=== PATIENT | female | born 1980 | race Caucasian/White ===

== ENCOUNTER 2020-09-07 21:32 | Inpatient (IN) ==
[2020-09-07] MEDS ORDERED: PENICILLIN G POTASSIUM 6 MU in DEXTROSE 5% 250 ML IV STA (23:08)
[2020-09-07] MEDS ORDERED: OXYTOCIN 30 UNITS/500 ML BAG IV PRN ×2 (23:08)
--- NOTE | 2020-09-07 23:13 | Obstetrical Progress Note ---
Date of Service September 07, 2020 Subjective 40 yo @ 36 + weeks AROM- clear Bedside sono; VT FHR; CAT1 Minimal irreg ctx GBS culx done starting Pitocin augmentation Results & Data ([facility]) Vital Signs (Past 12 Hours) Vital Signs Temp Pulse Resp BP 09/07/20 22:12 36.9 C 96 H 18 124/68 09/07/20 21:50 96 H 124/68
[2020-09-07 23:31] LABS: Hematocrit (blood only) 33.6 % (37-47); Hemoglobin 11.6 g/dL (12.0-16.0); Mean Corpuscular Hemoglobin 29.7 pg (25-34); Mean Corpuscular Volume 85.9 fL (80-100); Mean Platelet Volume 9.3 fL (7.4-10.4); Platelet Count 413 K/uL (130-400); RDW Coefficient of Variation 13.8 % (11.5-14.5); RDW Standard Deviation 42.7 fL (36.4-46.3); Red Blood Count 3.91 M/uL (4.2-5.4); White Blood Count 13.25 K/uL (4.8-10.8)
[2020-09-07] MEDS: LACTATED RINGER'S 1,000 ML IV PRN (23:48)
[2020-09-07 23:53] LABS: Mean Corpuscular Hgb Conc 34.5 g/dL (32-36)
--- NOTE | 2020-09-08 01:10 | Anesthesiology Progress Note ---
Date of Service September 08, 2020 Anesthesia Post Procedure Vital Signs Vital Signs: Temp Pulse Resp BP 09/08/20 00:15 77 18 132/60 09/07/20 23:30 37.0 C 09/07/20 22:12 36.9 C 96 H 18 124/68 09/07/20 21:50 36.9 C 96 H 18 124/68 Transfer of Care Handoff Completed per policy Notes Mental Status: alert / awake / arousable Patient Amnestic to Procedure: Yes Nausea / Vomiting: adequately controlled Pain: adequately controlled Airway Patency, RR, SpO2: stable & adequate BP & HR: stable & adequate Hydration State: stable & adequate Anesthetic Complications: no major complications apparent
[2020-09-08] MEDS ORDERED: SODIUM CHLORIDE 0.9% INJ 10 ML VIAL ONE ×2 (01:38→15:57)
[2020-09-08] MEDS ORDERED: fentaNYL citrate 100 MCG/2 ML VIAL ONE ×3 (01:38→15:57)
[2020-09-08] MEDS ORDERED: BUPIVACAINE 0.25% 30 ML VIAL ONE ×2 (01:38→15:57)
[2020-09-08] MEDS ORDERED: ePHEDrine sulfate 50 MG/ML AMP ONE ×2 (01:38→15:57)
[2020-09-08] MEDS ORDERED: fentaNYL 2MCG/ML ROPIVACAINE 1.25MG/ML 100 ML BAG EPI ONE ×2 (01:39→15:58)
[2020-09-08] MEDS ORDERED: NALOXONE HCL 0.4 MG/1 ML VIAL/CARP IV PRN (01:56)
[2020-09-08] MEDS ORDERED: ePHEDrine sulfate 50 MG/ML AMP IV PRN (01:56)
[2020-09-08] MEDS ORDERED: NALOXONE HCL 1 MG in SODIUM CHLORIDE 0.9% 1000ML 1,000 ML IV PRN (01:56)
[2020-09-08] MEDS ORDERED: ONDANSETRON INJ 2 MG/ML 2 ML VIAL IV PRN (01:56)
[2020-09-08] MEDS ORDERED: diphenhydrAMINE 50 MG/ML VIAL IV PRN (01:56)
[2020-09-08] MEDS ORDERED: PROMETHAZINE HCL 6.25 MG in SODIUM CHLORIDE 0.9% 50 ML IV PRN (01:56)
--- NOTE | 2020-09-08 02:23 | Anesthesiology Consultation ---
Date of Service September 08, 2020 Assessment & Plan (1) Encounter for pre-operative examination: Chart Review Chart Review: Patient NOT seen in Pre Admission Testing and Acceptable Risk for Labor Epidural Consults Requested none ASA ASA2 Proposed Anesthesia Anesthesia Type: Labor Epidural Risk / Benefits Reviewed With: PT / POA / Parent / Guardian, Accepts Plan and Informed Consent Obtained History Height/Weight Height: 5 ft 7 in Weight: 108.862 kg Allergies Allergy/AdvReac Type Severity Reaction Status Date / Time latex Allergy Rash Verified 09/07/20 22:40 Medications Home Medications Medication Instructions Recorded Confirmed Last Taken vit no.[id number] 1 tab PO DAILY 09/07/20 09/07/20 09/07/20 19:00 [ Vitamin] sertraline [Zoloft] 25 mg PO DAILY 09/07/20 09/07/20 09/07/20 19:00 Active Medications Generic Name Dose Route Start Last Admin Trade Name Freq PRN Reason Stop Dose Admin Lactated Ringer's 1,000 mls @ 125 mls/hr 09/07/20 23:08 09/08/20 01:30 Lr IV 09/09/20 23:07 999 mls/hr .Q8H PRN Infusion L&D Protocol Protocol Oxytocin 30 units in 500 mls @ 6 mls/hr 09/07/20 23:08 09/08/20 01:30 Pitocin IV 09/09/20 23:07 0.36 units/hr .Q24H PRN 6 mls/hr Labor Induction/Augmentation Titration Protocol 0.36 UNITS/HR NPO Date Last Intake of Fluids: 09/08/20 Time Last Intake of Fluids: 01:30 Date Last Intake of Solids: 09/07/20 Time Last Intake of Solids: 18:30 Past Medical History Medical History Elbow fracture, right 2015 Varicose vein of leg ablation in 12/14/2019 Exercise / Class Metabolic Activity II 4-5 Yardwork/Stairs/Walk up hill Past Surgical History Surgical History H/O dilation and curettage post TAB 2014 [place] teeth extracted 1999 Past Anesthesia History No Hx of Anesthesia Complications and No Family Hx of Anesthesia Complications History of PONV No Hx of PONV and No Hx of Motion Sickness Social History Smoking Status: Current every day smoker tobacco type: cigarettes Smoking cigarettes per day: 5 Hx Alcohol Use: No Hx Substance Use: No substance use type: does not use Physical Exam Vital Signs Last Vital Signs Temp 36.9 C 09/08/20 01:30 Pulse 74 09/08/20 02:19 Resp 16 09/08/20 01:30 BP 107/57 L 09/08/20 02:19 Pulse Ox 94 09/08/20 02:19 ENMT Mouth: no dentition abnormality Thyromental Distance: > or= 3.5 Finger Breadths Mallampati Class: II Neck normal visual inspection Respiratory normal respiratory effort Auscultation: lungs clear to auscultation bilaterally Cardiovascular Rate/Rhythm: regular rate and regular rhythm Psychiatric Orientation: alert Testing Laboratory Results 09/07/20 23:20
[2020-09-08] MEDS: LACTATED RINGER'S 1,000 ML IV PRN ×2 (02:26→13:18)
[2020-09-08] MEDS: PENICILLIN G POTASSIUM 3 MU in DEXTROSE 5% 100 ML IV PRN ×4 (03:48→15:21)
--- NOTE | 2020-09-08 03:58 | Obstetrical Progress Note ---
Date of Service September 08, 2020 Assessment & Plan Admission and Anticipated Discharge Date Admission Date: September 07, 2020 Subjective Pt doing wel FHR; CAT1 ctx; 1-6min Pit; 10mu VE; 4/50/-3 scalp placed Results & Data ([facility]) Vital Signs (Past 12 Hours) Vital Signs Temp Pulse Resp BP Pulse Ox 09/08/20 03:54 65 94 09/08/20 03:49 94 H 93 09/08/20 03:44 64 92 09/08/20 03:39 77 93 09/08/20 03:35 61 112/58 L 09/08/20 03:34 64 92 09/08/20 03:29 73 93 09/08/20 03:25 36.8 C 16 09/08/20 03:24 71 94 09/08/20 03:21 64 119/61 09/08/20 03:19 69 93 09/08/20 03:14 75 94 09/08/20 03:09 66 94 09/08/20 03:04 70 118/64 96 09/08/20 02:59 71 94 09/08/20 02:55 16 09/08/20 02:54 68 94 09/08/20 02:49 73 18 120/69 95 09/08/20 02:44 83 16 99/55 L 93 09/08/20 02:39 72 16 90/55 L 94 09/08/20 02:34 71 95 09/08/20 02:33 73 18 101/58 L 09/08/20 02:29 70 95 09/08/20 02:28 75 16 109/58 L 09/08/20 02:25 16 09/08/20 02:24 73 94 09/08/20 02:21 70 18 106/59 L 09/08/20 02:19 74 107/57 L 94 09/08/20 02:17 71 18 102/56 L 09/08/20 02:14 76 95 09/08/20 02:09 75 96 09/08/20 02:04 81 97 09/08/20 01:59 69 93 09/08/20 01:35 65 111/58 L 09/08/20 01:30 36.9 C 16 09/08/20 00:15 77 18 132/60 09/07/20 23:30 37.0 C 09/07/20 22:12 36.9 C 96 H 18 124/68 09/07/20 21:50 36.9 C 96 H 18 124/68
[2020-09-08] MEDS: fentaNYL 2MCG/ML ROPIVACAINE 1.25MG/ML 100 ML BAG EPI PRN ×3 (08:59→15:30)
--- NOTE | 2020-09-08 09:23 | History & Physical Report ---
Date of Service September 08, 2020 Assessment & Plan (1) Premature rupture of membranes: 40-year-old -0-0-2 at 36 weeks and 3 days, with premature rupture of membranes. Vital signs stable afebrile heart rate reassuring GBS unknown, on penicillin In first stage of labor, minimal change in cervix with irregular contractions Plan to increase Pitocin and continues to monitor All questions were answered. Admission and Anticipated Discharge Date Admission Date: September 07, 2020 History of Present Illness Primary Care Provider: Destini Stewart MD Patient is a 40-year-old -0-0-2 at 36 weeks and 3 days, admitted by Dr. Daniel for spontaneous rupture of membranes at 8 PM last night. She was then started on Pitocin and AROM and this morning to place scalp electrodes. She feels well no complaints, no contractions. Fluid has been clear Her has been uncomplicated except 1) Depression: on Zoloft 2) smoking, 6 cig/ day 3) polyhydramnios, 4)advanced maternal age, low risk by panorama testing, 5) GBS unknown. Allergies Allergy/AdvReac Type Severity Reaction Status Date / Time latex Allergy Rash Verified 09/07/20 22:40 Home Medications Home Medications Medication Instructions Recorded Confirmed Type vit no.[id number] 1 tab PO DAILY 09/07/20 09/07/20 History [ Vitamin] sertraline [Zoloft] 25 mg PO DAILY 09/07/20 09/07/20 History Patient History Medical History Elbow fracture, right 2015 Varicose vein of leg ablation in 12/14/2019 Surgical History H/O dilation and curettage post TAB 2014 [place] teeth extracted 1999 Social History Smoking Status: Current every day smoker Cigarettes Per Day: 5; Hx Alcohol Use: No Hx Substance Use: No Preferred Language: Indonesian Communication Ability: Effective 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 No h/o STD's, no genital HSV Review of Systems All systems reviewed & are unremarkable except as noted in HPI & below Physical Exam Genitourinary: normal external appearance Manual OB Exam: + cervical dilation 5 cm, + cervical effacement 60% and + station -2 OB Exam Monitor Tracing: + scalp electrode used (CATEG I), + external uterine monitor used, + category I and + normal FHT variability Results & Data ([facility]) Vital Signs (Past 12 Hours) Vital Signs Temp Pulse Resp BP Pulse Ox 09/08/20 09:09 72 95 09/08/20 09:06 66 107/65 09/08/20 09:04 72 95 09/08/20 08:59 66 95 09/08/20 08:54 82 97 09/08/20 08:49 83 102/61 96 09/08/20 08:44 64 93 09/08/20 08:39 64 95 09/08/20 08:34 71 108/62 95 09/08/20 08:29 73 95 09/08/20 08:28 74 113/63 09/08/20 08:24 70 95 09/08/20 08:19 72 95 09/08/20 08:14 71 95 09/08/20 08:09 77 95 09/08/20 08:04 67 125/59 L 96 09/08/20 07:59 68 96 09/08/20 07:54 72 96 09/08/20 07:49 74 122/62 97 09/08/20 07:44 74 97 09/08/20 07:39 71 97 09/08/20 07:36 71 113/58 L 09/08/20 07:34 64 97 09/08/20 07:30 36.9 C 20 09/08/20 07:29 73 98 09/08/20 07:24 71 96 09/08/20 07:21 80 141/71 H 09/08/20 07:19 67 98 09/08/20 07:14 67 97 09/08/20 07:09 85 92 09/08/20 07:08 65 134/75 10/24/20 07:05 71 130/70 10/24/20 07:04 68 97 10/24/20 07:00 16 1024/20 06:59 68 96 1024/20 06:54 75 96 1024/20 06:49 70 120/70 95 10/24/20 06:44 66 96 10/24/20 06:39 68 94 1024/20 06:34 66 118/70 95 24/20 06:30 16 24/20 06:29 65 95 1024/20 06:24 70 95 10/24/20 06:19 67 120/72 95 10/24/20 06:14 71 94 1024/20 06:09 68 95 24/20 06:04 73 113/71 96 09/08/20 06:00 16 20 05:59 66 95 1024/20 05:54 67 96 24/20 05:50 63 124/66 24/20 05:49 62 96 20 05:44 68 96 24/20 05:39 67 95 1024/20 05:34 65 117/67 96 24/20 05:30 18 1024/20 05:29 70 95 1024/20 05:24 68 95 20 05:20 65 126/74 09/08/20 05:19 67 96 24/20 05:14 63 95 24/20 05:09 70 95 24/20 05:04 76 114/61 94 2420 05:00 36.8 C 16 20 04:59 80 96 24/20 04:54 64 94 1024/20 04:51 73 112/57 L 24/20 04:49 64 94 10/24/20 04:44 68 94 10/24/20 04:39 69 93 1024/20 04:34 68 130/76 94 1024/20 04:30 16 1024/20 04:29 70 96 10/24/20 04:24 73 96 24/20 04:19 76 127/78 96 10/24/20 04:14 70 96 1024/20 04:09 66 95 1024/20 04:06 71 116/68 1024/20 04:04 65 95 09/08/20 03:59 73 95 09/08/20 03:54 65 94 09/08/20 03:49 94 H 18 93 09/08/20 03:44 64 92 09/08/20 03:39 77 93 09/08/20 03:35 61 112/58 L 09/08/20 03:34 64 92 09/08/20 03:29 73 93 09/08/20 03:25 36.8 C 16 09/08/20 03:24 71 94 09/08/20 03:21 64 119/61 09/08/20 03:19 69 93 09/08/20 03:14 75 94 09/08/20 03:09 66 94 09/08/20 03:04 70 118/64 96 09/08/20 02:59 71 94 09/08/20 02:55 16 09/08/20 02:54 68 94 09/08/20 02:49 73 18 120/69 95 09/08/20 02:44 83 16 99/55 L 93 09/08/20 02:39 72 16 90/55 L 94 09/08/20 02:34 71 95 09/08/20 02:33 73 18 101/58 L 09/08/20 02:29 70 95 09/08/20 02:28 75 16 109/58 L 09/08/20 02:25 16 09/08/20 02:24 73 94 09/08/20 02:21 70 18 106/59 L 09/08/20 02:19 74 107/57 L 94 09/08/20 02:17 71 18 102/56 L 09/08/20 02:14 76 95 09/08/20 02:09 75 96 09/08/20 02:04 81 97 09/08/20 01:59 69 93 09/08/20 01:35 65 111/58 L 09/08/20 01:30 36.9 C 16 09/08/20 00:15 77 18 132/60 09/07/20 23:30 37.0 C 09/07/20 22:12 36.9 C 96 H 18 124/68 09/07/20 21:50 36.9 C 96 H 18 124/68 Laboratory Results Lab Results 09/07/20 09/07/20 Range/Units 23:10 23:20 WBC 13.25 H (4.8-10.8) K/uL RBC 3.91 L (4.2-5.4) M/uL Hgb 11.6 L (12.0-16.0) g/dL Hct 33.6 L (37-47) % MCV 85.9 (80-100) fL MCH 29.7 (25-34) pg MCHC 34.5 (32-36) g/dL RDW Std Deviation 42.7 (36.4-46.3) fL RDW Coeff of [place] 13.8 (11.5-14.5) % Plt Count 413 H (130-400) K/uL MPV 9.3 (7.4-10.4) fL SARS-CoV-2, RNA, NAAT NEGATIVE (NEGATIVE)
--- NOTE | 2020-09-08 14:17 | Obstetrical Progress Note ---
Date of Service September 08, 2020 Assessment & Plan Admission and Anticipated Discharge Date Admission Date: September 07, 2020 Subjective Patient started to feel ctxs VE; 6/ 70%/ -1, central FHR categ I [place] ctxs q 2-3 min, pitocin is at 20 miu/min Anesthesia is here to give her bolus Continue to monitor Results & Data ([facility]) Vital Signs (Past 12 Hours) Vital Signs Temp Pulse Resp BP Pulse Ox 09/08/20 14:15 36.7 C 16 09/08/20 14:14 67 96 09/08/20 14:09 69 96 09/08/20 14:05 75 120/74 09/08/20 14:04 69 96 09/08/20 13:59 72 96 09/08/20 13:54 67 94 09/08/20 13:50 67 119/65 09/08/20 13:49 67 95 09/08/20 13:44 69 94 09/08/20 13:39 62 94 09/08/20 13:34 61 118/70 95 09/08/20 13:29 61 95 09/08/20 13:24 60 94 09/08/20 13:19 65 117/69 95 09/08/20 13:14 70 95 09/08/20 13:09 69 95 09/08/20 13:06 65 125/83 09/08/20 13:04 67 95 09/08/20 12:59 63 94 09/08/20 12:54 69 94 09/08/20 12:50 66 119/57 L 09/08/20 12:49 70 94 09/08/20 12:44 62 95 09/08/20 12:39 68 95 09/08/20 12:35 80 20 131/57 L 09/08/20 12:34 81 94 09/08/20 12:29 76 96 09/08/20 12:24 72 95 09/08/20 12:20 72 20 106/57 L 09/08/20 12:19 82 94 09/08/20 12:14 72 95 09/08/20 12:09 67 94 09/08/20 12:06 65 125/64 09/08/20 12:04 77 95 09/08/20 11:59 86 94 09/08/20 11:54 69 93 09/08/20 11:50 68 20 111/58 L 09/08/20 11:49 63 95 09/08/20 11:44 89 94 09/08/20 11:39 82 92 09/08/20 11:35 85 111/60 09/08/20 11:34 82 93 09/08/20 11:29 73 95 09/08/20 11:24 70 94 09/08/20 11:20 73 18 118/59 L 09/08/20 11:19 67 94 09/08/20 11:14 68 93 09/08/20 11:09 73 94 09/08/20 11:04 70 115/68 94 09/08/20 11:00 36.6 C 20 09/08/20 10:59 71 94 09/08/20 10:54 74 94 09/08/20 10:49 77 118/68 95 09/08/20 10:44 76 94 09/08/20 10:39 70 93 09/08/20 10:35 64 117/64 09/08/20 10:34 66 94 09/08/20 10:29 68 94 09/08/20 10:24 62 96 09/08/20 10:19 65 20 123/79 96 09/08/20 10:14 71 96 09/08/20 10:09 75 100 09/08/20 10:08 82 87 L 09/08/20 10:05 67 124/76 09/08/20 10:04 66 95 09/08/20 09:59 73 95 09/08/20 09:54 72 93 09/08/20 09:49 70 18 104/76 96 09/08/20 09:44 64 96 09/08/20 09:39 74 95 09/08/20 09:36 71 104/68 09/08/20 09:34 74 95 09/08/20 09:29 71 97 09/08/20 09:27 72 85 L 09/08/20 09:24 62 95 09/08/20 09:20 71 20 123/70 09/08/20 09:19 69 95 09/08/20 09:18 93 H 86 L 09/08/20 09:15 36.6 C 20 09/08/20 09:14 68 95 09/08/20 09:09 72 95 09/08/20 09:06 66 107/65 10/24/20 09:04 72 95 10/24/20 08:59 66 95 1024/20 08:54 82 97 1024/20 08:49 83 20 102/61 96 1024/20 08:44 64 93 1024/20 08:39 64 95 1024/20 08:34 71 108/62 95 10/24/20 08:29 73 95 1024/20 08:28 74 20 113/63 1024/20 08:24 70 95 1024/20 08:19 72 95 1024/20 08:14 71 95 1024/20 08:09 77 95 1024/20 08:04 67 125/59 L 96 24/20 07:59 68 96 24/20 07:54 72 96 24/20 07:49 74 122/62 97 24/20 07:44 74 97 24/20 07:39 71 97 24/20 07:36 71 113/58 L 20 07:34 64 97 20 07:30 36.9 C 20 24/20 07:29 73 98 1024/20 07:24 71 96 1024/20 07:21 80 141/71 H 24/20 07:19 67 98 24/20 07:14 67 97 24/20 07:09 85 92 1024/20 07:08 65 134/75 1024/20 07:05 71 130/70 1024/20 07:04 68 97 1024/20 07:00 16 24/20 06:59 68 96 1024/20 06:54 75 96 10/24/20 06:49 70 120/70 95 10/24/20 06:44 66 96 10/24/20 06:39 68 94 10/24/20 06:34 66 118/70 95 10/24/20 06:30 16 1024/20 06:29 65 95 10/24/20 06:24 70 95 10/24/20 06:19 67 120/72 95 10/24/20 06:14 71 94 10/24/20 06:09 68 95 10/24/20 06:04 73 113/71 96 10/24/20 06:00 16 1024/20 05:59 66 95 10/24/20 05:54 67 96 09/08/20 05:50 63 124/66 09/08/20 05:49 62 96 09/08/20 05:44 68 96 09/08/20 05:39 67 95 09/08/20 05:34 65 117/67 96 09/08/20 05:30 18 09/08/20 05:29 70 95 09/08/20 05:24 68 95 09/08/20 05:20 65 126/74 09/08/20 05:19 67 96 09/08/20 05:14 63 95 09/08/20 05:09 70 95 09/08/20 05:04 76 114/61 94 09/08/20 05:00 36.8 C 16 09/08/20 04:59 80 96 09/08/20 04:54 64 94 09/08/20 04:51 73 112/57 L 09/08/20 04:49 64 94 09/08/20 04:44 68 94 09/08/20 04:39 69 93 09/08/20 04:34 68 130/76 94 09/08/20 04:30 16 09/08/20 04:29 70 96 09/08/20 04:24 73 96 09/08/20 04:19 76 127/78 96 09/08/20 04:14 70 96 09/08/20 04:09 66 95 09/08/20 04:06 71 116/68 09/08/20 04:04 65 95 09/08/20 03:59 73 95 09/08/20 03:54 65 94 09/08/20 03:49 94 H 18 93 09/08/20 03:44 64 92 09/08/20 03:39 77 93 09/08/20 03:35 61 112/58 L 09/08/20 03:34 64 92 09/08/20 03:29 73 93 09/08/20 03:25 36.8 C 16 09/08/20 03:24 71 94 09/08/20 03:21 64 119/61 20 03:19 69 93 09/08/20 03:14 75 94 09/08/20 03:09 66 94 09/08/20 03:04 70 118/64 96 09/08/20 02:59 71 94 09/08/20 02:55 16 09/08/20 02:54 68 94 09/08/20 02:49 73 18 120/69 95 09/08/20 02:44 83 16 99/55 L 93 09/08/20 02:39 72 16 90/55 L 94 09/08/20 02:34 71 95 09/08/20 02:33 73 18 101/58 L 09/08/20 02:29 70 95 09/08/20 02:28 75 16 109/58 L 09/08/20 02:25 16 09/08/20 02:24 73 94 09/08/20 02:21 70 18 106/59 L 09/08/20 02:19 74 107/57 L 94 09/08/20 02:17 71 18 102/56 L
--- NOTE | 2020-09-08 15:46 | Anesthesiology Progress Note ---
Date of Service September 08, 2020 Assessment & Plan Admission and Anticipated Discharge Date Admission Date: September 07, 2020 Subjective 0 p redosed with 100 mcg of fentanyl and 5 mL 2% lidocaine Physical Exam Vital Signs: Last Vital Signs Temp 36.7 C 09/08/20 14:15 Pulse 77 09/08/20 15:43 Resp 16 09/08/20 14:15 BP 116/67 09/08/20 15:37 Pulse Ox 77 L 09/08/20 15:43 Results & Data ([facility]) Medications Administered Lactated Ringer's (Lr) 1,000 mls @ 125 mls/hr IV .Q8H PRN; Protocol PRN Reason: L&D Protocol Stop: 09/09/20 23:07 Last Admin: 09/08/20 13:18 Dose: 125 mls/hr Documented by: [id number] Infusion: 09/08/20 10:27 Dose: 125 mls/hr Documented by: [id number] Infusion: 09/08/20 07:15 Dose: 125 mls/hr Documented by: [id number] Infusion: 09/08/20 07:00 Dose: 125 mls/hr Documented by: [id number] Admin: 09/08/20 02:26 Dose: 125 mls/hr Documented by: [id number] Infusion: 09/08/20 02:26 Dose: 999 mls/hr Documented by: [id number] Infusion: 09/08/20 01:30 Dose: 999 mls/hr Documented by: [id number] Infusion: 09/08/20 01:00 Dose: 125 mls/hr Documented by: [id number] Infusion: 09/07/20 23:51 Dose: 0 mls/hr Documented by: [id number] Admin: 09/07/20 23:48 Dose: 125 mls/hr Documented by: [id number] Penicillin G Potassium 3 mu/ (Dextrose) 106 mls @ 100 mls/hr IV Q4H PRN PRN Reason: Give until delivery Stop: 09/17/20 23:07 Last Admin: 09/08/20 15:21 Dose: 100 mls/hr Documented by: [id number] Infusion: 09/08/20 12:34 Dose: 100 mls/hr Documented by: [id number] Admin: 09/08/20 11:30 Dose: 100 mls/hr Documented by: [id number] Infusion: 09/08/20 08:29 Dose: 100 mls/hr Documented by: [id number] Admin: 09/08/20 07:25 Dose: 100 mls/hr Documented by: [id number] Infusion: 09/08/20 04:52 Dose: 100 mls/hr Documented by: [id number] Admin: 09/08/20 03:48 Dose: 100 mls/hr Documented by: [id number] Oxytocin (Pitocin) 30 units in 500 mls @ 20 mls/hr IV .Q24H PRN; Protocol PRN Reason: Labor Induction/Augmentation Stop: 09/09/20 23:07 Last Titration: 09/08/20 12:30 Dose: 1.2 units/hr, 20 mls/hr Documented by: [id number] Titration: 09/08/20 10:15 Dose: 1.08 units/hr, 18 mls/hr Documented by: [id number] Titration: 09/08/20 09:13 Dose: 0.96 units/hr, 16 mls/hr Documented by: [id number] Titration: 09/08/20 07:30 Dose: 0.84 units/hr, 14 mls/hr Documented by: [id number] Titration: 09/08/20 07:00 Dose: 0.72 units/hr, 12 mls/hr Documented by: [id number] Titration: 09/08/20 05:00 Dose: 0.72 units/hr, 12 mls/hr Documented by: [id number] Titration: 09/08/20 03:45 Dose: 0.6 units/hr, 10 mls/hr Documented by: [id number] Titration: 09/08/20 03:15 Dose: 0.48 units/hr, 8 mls/hr Documented by: [id number] Titration: 09/08/20 01:30 Dose: 0.36 units/hr, 6 mls/hr Documented by: [id number] Titration: 09/08/20 01:00 Dose: 0.24 units/hr, 4 mls/hr Documented by: [id number] Admin: 09/08/20 00:20 Dose: 0.12 units/hr, 2 mls/hr Documented by: [id number] Cosigned by: [id number] Ropivacaine (Fentanyl 2mcg/Ml Ropivacaine 1.25mg/Ml 100 Ml Bag) 100 ml EPI PRN PRN; Protocol PRN Reason: Pain R/T Labor Stop: 09/09/20 01:55 Last Admin: 09/08/20 13:51 Dose: 10 ml Documented by: [id number] Cosigned by: [id number] Admin: 09/08/20 08:59 Dose: 10 ml Documented by: [id number] Cosigned by: [id number]
--- NOTE | 2020-09-08 17:14 | Obstetrical Progress Note ---
Date of Service September 08, 2020 Assessment & Plan Admission and Anticipated Discharge Date Admission Date: September 07, 2020 Subjective Patient is reevaluated She is now comfortable Epidural was redone VE; 8-9/ 90%/0 to +1 with ctxs Ctxs irregular every 2-4 min, some are mild Protracted labor, will raise Pitocin Continue to monitor. Results & Data ([facility]) Vital Signs (Past 12 Hours) Vital Signs Temp Pulse Resp BP Pulse Ox 09/08/20 17:09 71 97 09/08/20 17:04 85 98 09/08/20 16:59 67 94 09/08/20 16:54 66 95 09/08/20 16:51 86 113/60 09/08/20 16:49 65 94 09/08/20 16:47 73 120/66 09/08/20 16:44 84 95 09/08/20 16:41 83 120/68 09/08/20 16:39 73 95 09/08/20 16:37 85 100/59 L 09/08/20 16:34 72 93 09/08/20 16:31 82 95/52 L 09/08/20 16:29 88 95 09/08/20 16:26 75 116/61 09/08/20 16:24 85 93 09/08/20 16:22 75 113/59 L 09/08/20 16:20 94 H 107/56 L 09/08/20 16:19 93 H 94 09/08/20 16:18 85 122/71 09/08/20 16:15 77 125/78 09/08/20 16:14 81 129/74 94 09/08/20 16:09 73 93 09/08/20 16:04 87 143/85 H 92 09/08/20 16:01 90 81 L 09/08/20 15:59 78 97 09/08/20 15:54 69 95 09/08/20 15:50 73 150/80 H 09/08/20 15:49 73 93 09/08/20 15:48 71 84 L 09/08/20 15:44 78 95 09/08/20 15:43 77 77 L 09/08/20 15:39 69 96 09/08/20 15:37 68 116/67 09/08/20 15:35 75 132/79 09/08/20 15:34 82 96 09/08/20 15:29 75 93 09/08/20 15:24 79 93 09/08/20 15:19 78 95 09/08/20 15:14 63 96 09/08/20 15:10 79 87 L 09/08/20 15:09 68 95 09/08/20 15:04 72 95 09/08/20 14:59 74 95 09/08/20 14:57 76 87 L 09/08/20 14:54 77 93 09/08/20 14:50 68 132/76 09/08/20 14:49 71 96 09/08/20 14:44 70 93 09/08/20 14:41 85 89 L 09/08/20 14:39 71 95 09/08/20 14:35 62 122/63 09/08/20 14:34 67 94 09/08/20 14:29 67 94 09/08/20 14:24 72 94 09/08/20 14:21 73 110/69 09/08/20 14:19 66 95 09/08/20 14:15 36.7 C 16 09/08/20 14:14 67 96 09/08/20 14:09 69 96 09/08/20 14:05 75 120/74 09/08/20 14:04 69 96 09/08/20 13:59 72 96 09/08/20 13:54 67 94 09/08/20 13:50 67 119/65 09/08/20 13:49 67 95 09/08/20 13:44 69 94 09/08/20 13:39 62 94 09/08/20 13:34 61 118/70 95 09/08/20 13:29 61 95 09/08/20 13:24 60 94 09/08/20 13:19 65 117/69 95 09/08/20 13:14 70 95 09/08/20 13:09 69 95 09/08/20 13:06 65 125/83 09/08/20 13:04 67 95 09/08/20 12:59 63 94 09/08/20 12:54 69 94 09/08/20 12:50 66 119/57 L 09/08/20 12:49 70 94 09/08/20 12:44 62 95 09/08/20 12:39 68 95 09/08/20 12:35 80 20 131/57 L 09/08/20 12:34 81 94 09/08/20 12:29 76 96 09/08/20 12:24 72 95 09/08/20 12:20 72 20 106/57 L 09/08/20 12:19 82 94 09/08/20 12:14 72 95 09/08/20 12:09 67 94 09/08/20 12:06 65 125/64 09/08/20 12:04 77 95 09/08/20 11:59 86 94 09/08/20 11:54 69 93 09/08/20 11:50 68 20 111/58 L 09/08/20 11:49 63 95 09/08/20 11:44 89 94 09/08/20 11:39 82 92 09/08/20 11:35 85 111/60 09/08/20 11:34 82 93 09/08/20 11:29 73 95 09/08/20 11:24 70 94 09/08/20 11:20 73 18 118/59 L 09/08/20 11:19 67 94 09/08/20 11:14 68 93 09/08/20 11:09 73 94 09/08/20 11:04 70 115/68 94 09/08/20 11:00 36.6 C 20 09/08/20 10:59 71 94 09/08/20 10:54 74 94 09/08/20 10:49 77 118/68 95 09/08/20 10:44 76 94 09/08/20 10:39 70 93 09/08/20 10:35 64 117/64 09/08/20 10:34 66 94 09/08/20 10:29 68 94 09/08/20 10:24 62 96 09/08/20 10:19 65 20 123/79 96 09/08/20 10:14 71 96 09/08/20 10:09 75 100 09/08/20 10:08 82 87 L 09/08/20 10:05 67 124/76 09/08/20 10:04 66 95 09/08/20 09:59 73 95 09/08/20 09:54 72 93 09/08/20 09:49 70 18 104/76 96 09/08/20 09:44 64 96 09/08/20 09:39 74 95 09/08/20 09:36 71 104/68 10/24/20 09:34 74 95 09/08/20 09:29 71 97 09/08/20 09:27 72 85 L 09/08/20 09:24 62 95 09/08/20 09:20 71 20 123/70 20 09:19 69 95 20 09:18 93 H 86 L 09/08/20 09:15 36.6 C 20 09/08/20 09:14 68 95 09/08/20 09:09 72 95 09/08/20 09:06 66 107/65 09/08/20 09:04 72 95 09/08/20 08:59 66 95 09/08/20 08:54 82 97 09/08/20 08:49 83 20 102/61 96 09/08/20 08:44 64 93 09/08/20 08:39 64 95 09/08/20 08:34 71 108/62 95 09/08/20 08:29 73 95 09/08/20 08:28 74 20 113/63 09/08/20 08:24 70 95 09/08/20 08:19 72 95 09/08/20 08:14 71 95 09/08/20 08:09 77 95 09/08/20 08:04 67 125/59 L 96 09/08/20 07:59 68 96 09/08/20 07:54 72 96 09/08/20 07:49 74 122/62 97 09/08/20 07:44 74 97 09/08/20 07:39 71 97 09/08/20 07:36 71 113/58 L 09/08/20 07:34 64 97 09/08/20 07:30 36.9 C 20 09/08/20 07:29 73 98 09/08/20 07:24 71 96 09/08/20 07:21 80 141/71 H 09/08/20 07:19 67 98 09/08/20 07:14 67 97 09/08/20 07:09 85 92 09/08/20 07:08 65 134/75 09/08/20 07:05 71 130/70 20 07:04 68 97 09/08/20 07:00 16 09/08/20 06:59 68 96 09/08/20 06:54 75 96 20 06:49 70 120/70 95 10/24/20 06:44 66 96 10/24/20 06:39 68 94 10/24/20 06:34 66 118/70 95 10/24/20 06:30 16 10/24/20 06:29 65 95 10/24/20 06:24 70 95 10/24/20 06:19 67 120/72 95 10/24/20 06:14 71 94 10/24/20 06:09 68 95 10/24/20 06:04 73 113/71 96 10/24/20 06:00 16 10/24/20 05:59 66 95 10/24/20 05:54 67 96 10/24/20 05:50 63 124/66 10/24/20 05:49 62 96 10/24/20 05:44 68 96 10/24/20 05:39 67 95 10/24/20 05:34 65 117/67 96 10/24/20 05:30 18 10/24/20 05:29 70 95 10/24/20 05:24 68 95 10/24/20 05:20 65 126/74 10/24/20 05:19 67 96 10/24/20 05:14 63 95
[2020-09-08] MEDS ORDERED: NURSING L&D Epidural Breakthrough Pain Update ONE (17:27)
[2020-09-08] MEDS ORDERED: METHYLERGONOVINE MALEATE 0.2 MG/ML AMP ONE (18:27)
[2020-09-08] MEDS ORDERED: MINERAL OIL 30 ML UDC ONE ×2 (18:32→19:13)
[2020-09-08] MEDS ORDERED: SUPERCREAM 0.870% 15 GM JAR EXT PRN (19:11)
[2020-09-08] MEDS ORDERED: OXYTOCIN 30 UNITS/500 ML BAG IV PRN (19:11)
[2020-09-08] MEDS ORDERED: METHYLERGONOVINE MALEATE 0.2 MG/ML AMP IM ONE (19:11)
[2020-09-08] MEDS ORDERED: bisacodyL 10 MG SUPP PR PRN (19:11)
[2020-09-08] MEDS ORDERED: HYDROCORTISONE ACETATE 25 MG SUPP PR PRN (19:11)
[2020-09-08] MEDS ORDERED: DIPHTHERIA/TETANUS/PERTUSSIS 0.5 ML SYR/VIAL IM ONE (19:11)
[2020-09-08] MEDS ORDERED: MEASLES, MUMPS & RUBELLA VIRUS VIAL SQ ONE (19:11)
[2020-09-08] MEDS ORDERED: BENZOCAINE 20% AER SPR 82.5 GM CAN EXT PRN (19:11)
[2020-09-08] MEDS ORDERED: IBUPROFEN 600 MG TAB PO ONE (19:20)
[2020-09-08] MEDS ORDERED: CLINDAMYCIN 900 MG in DEXTROSE 5% 50 ML IV ONE (19:30)
--- NOTE | 2020-09-08 20:24 | Delivery Summary ---
DATE OF OPERATION: 09/08/2020 TIME: 1833 p.m. DETAILS OF DELIVERY: The patient was found to be fully dilated and desired to push. She pushed for about half an hour and delivered the head without difficulty. There were nuchal cord x2 around the neck. Those were removed. Shoulders were delivered with minimal traction. Baby was handed off to the mother where mouth and nose were suctioned. Cord was clamped x2 and cut at 1 minute delay. Cord blood was obtained. It was a 3-vessel cord. Vagina and perineum were checked for lacerations. There was a small first-degree right labial laceration superiorly, which was repaired with [id number] stitch x1. It was hemostatic. Rest of the vagina and perineum were intact. Placenta was found to be in the vagina, delivered spontaneously as intact and complete. Uterus was explored, found to have irregular surface on the anterior superior wall. The patient had good epidural with no pain. A Bumm curette was used. That are was curetted and small amount of membrane was brought out and the rest of the lining was smooth and the procedure was ended. EBL was 200 mL. Fundus was firm. Mom and baby tolerated the procedure well. Sponge, lap, needle count was correct x2. Baby was a viable male infant, Apgars 8/9, weight is 3569 gr. No complications happened and I was present during whole procedure. I attest to the content of the Intraoperative Record and any orders documented therein. Any exceptions are noted below. MTDD
[2020-09-08] MEDS: DOCUSATE SODIUM 100 MG CAP PO SCH (20:54)
[2020-09-08] MEDS: ACETAMINOPHEN 325 MG TAB PO PRN (21:34)
--- NOTE | 2020-09-08 23:35 | Anesthesia Procedure Note ---
Date of Service September 08, 2020 Anesthesia Post Epidural Note Vital Signs Vital Signs: Temp Pulse Resp BP Pulse Ox 36.7 C 77 18 134/67 95 09/08/20 19:00 09/08/20 20:54 09/08/20 21:00 09/08/20 20:54 09/08/20 18:34 Pain Intensity Abdomen: Pain Intensity: 0 Bilateral Head: Pain Intensity: 1 Perineal: Pain Intensity: 3 Notes Mental Status: alert / awake / arousable Nausea / Vomiting: adequately controlled Pain: adequately controlled Airway Patency, RR, SpO2: stable & adequate BP & HR: stable & adequate Hydration State: stable & adequate Neuraxial Anesthesia: was administered and sensory block is resolving Anesthetic Complications: no major complications apparent and Pt Satisfied with anesthetic care Epidural: Removed without complications and With tip intact
[2020-09-09] MEDS: IBUPROFEN 600 MG TAB PO PRN ×4 (04:50→21:10)
[2020-09-09] MEDS: ACETAMINOPHEN 325 MG TAB PO PRN (04:51)
[2020-09-09 07:11] LABS: Hematocrit (blood only) 32.2 % (37-47); Mean Corpuscular Hemoglobin 29.8 pg (25-34); Mean Corpuscular Hgb Conc 34.2 g/dL (32-36); Mean Corpuscular Volume 87.3 fL (80-100); Mean Platelet Volume 10.2 fL (7.4-10.4); Platelet Count 379 K/uL (130-400); RDW Coefficient of Variation 13.8 % (11.5-14.5); RDW Standard Deviation 43.7 fL (36.4-46.3); Red Blood Count 3.69 M/uL (4.2-5.4)
[2020-09-09] MEDS: DOCUSATE SODIUM 100 MG CAP PO SCH ×2 (08:40→20:53)
[2020-09-09] MEDS: PRENATAL VITAMIN 1 TAB PO SCH (08:40)
[2020-09-09] MEDS: FERROUS SULFATE 325 MG TAB PO SCH (08:40)
--- NOTE | 2020-09-09 10:22 | Obstetrical Progress Note ---
Date of Service September 09, 2020 Assessment & Plan Admission and Anticipated Discharge Date Admission Date: September 07, 2020 Subjective Patient is seen and examined. She feels well, no complaints. Ambulating without dizziness Voiding without difficulty Tolerating regular diet with out N&V Bleeding is minimal No fever/ chills/ CP/ SOB/ N&V/ Leg pain Breast feeding without problems Vital Signs Temp Pulse Resp BP Pulse Ox 09/09/20 07:45 36.9 C 57 L 18 110/69 99 09/09/20 04:45 36.8 C 72 18 118/74 09/08/20 23:35 36.8 C 67 18 110/65 Lab Results 09/07/20 09/07/20 09/09/20 Range/Units 23:10 23: 05:58 WBC 13.25 H 20.70 H (4.8-10.8) K/uL RBC 3.91 L 3.69 L (4.2-5.4) M/uL Hgb 11.6 L 11.0 L (12.0-16.0) g/dL Hct 33.6 L 32.2 L (37-47) % MCV 85.9 87.3 (80-100) fL MCH 29.7 29.8 (25-34) pg MCHC 34.5 34.2 (32-36) g/dL RDW Std Deviation 42.7 43.7 (36.4-46.3) fL RDW Coeff of Forrest 13.8 13.8 (11.5-14.5) % Plt Count 413 H 379 (130-400) K/uL MPV 9.3 10.2 (7.4-10.4) fL SARS-CoV-2, RNA, NAAT NEGATIVE (NEGATIVE) PE: General: Alert, orientedx3, NAD Abd: soft, NT, fundus firm, below Umbilicus Perineum intact, Lochia rubra minimal Ext; NT, no edema AP: 40 yo s/p , ppd# 1 VSS Afebrile doing well Continue routine care All questions were answered D/C home tomorrow Results & Data ([facility] [place]) Vital Signs (Past 12 Hours) Vital Signs Temp Pulse Resp BP Pulse Ox 09/09/20 07:45 36.9 C 57 L 18 110/69 99 09/09/20 04:45 36.8 C 72 18 118/74 09/08/20 23:35 36.8 C 67 18 110/65
[2020-09-09] MEDS ORDERED: bisacodyL 5 MG TABEC PO SCH (20:00)
[2020-09-10 06:37] LABS: Basophils # (auto) 0.03 K/uL (0-0.2); Basophils % (auto) 0.2 %; Eosinophils # (auto) 0.16 K/uL (0-0.5); Eosinophils % (auto) 1.2 %; Hematocrit (blood only) 33.1 % (37-47); Hemoglobin 10.9 g/dL (12.0-16.0); Immature Granulocytes # (auto) 0.03 K/uL (0.00-0.02); Immature Granulocytes % (auto) 0.2 %; Lymphocytes # (auto) 3.55 K/uL (1.2-3.4); Lymphocytes % (auto) 26.6 %; Mean Corpuscular Hgb Conc 32.9 g/dL (32-36); Mean Platelet Volume 9.7 fL (7.4-10.4); Monocytes # (auto) 0.77 K/uL (0.11-0.59); Monocytes % (auto) 5.8 %; Platelet Count 381 K/uL (130-400); RDW Standard Deviation 44.7 fL (36.4-46.3); Red Blood Count 3.76 M/uL (4.2-5.4); White Blood Count 13.34 K/uL (4.8-10.8)
[2020-09-10] MEDS: ACETAMINOPHEN 325 MG TAB PO PRN (08:34)
[2020-09-10] MEDS: PRENATAL VITAMIN 1 TAB PO SCH (08:34)
[2020-09-10] MEDS: DOCUSATE SODIUM 100 MG CAP PO SCH (08:34)
[2020-09-10] MEDS: FERROUS SULFATE 325 MG TAB PO SCH (08:34)
--- NOTE | 2020-09-10 11:44 | Obstetrical Progress Note ---
Date of Service September 10, 2020 Assessment & Plan Admission and Anticipated Discharge Date Admission Date: September 07, 2020 Subjective doing well out of bed tolerating diet passing gas Physical Exam Constitutional: WD/WN, vitals as above comfortable abdomen soft and non- tender fundus firm no edema neg Koffi's Results & Data ([facility] [place]) Vital Signs (Past 12 Hours) Vital Signs Temp Pulse Resp Pulse Ox 09/10/20 08:30 36.7 C 58 L 97 H 97 Laboratory Results 09/07/20 09/07/20 09/09/20 23:10 23:20 05:58 WBC 13.25 H 20.70 H RBC 3.91 L 3.69 L Hgb 11.6 L 11.0 L Hct 33.6 L 32.2 L MCV 85.9 87.3 MCH 29.7 29.8 MCHC 34.5 34.2 RDW Std Deviation 42.7 43.7 RDW Coeff of Forrest 13.8 13.8 Plt Count 413 H 379 MPV 9.3 10.2 Immature Gran % (Auto) Neut % (Auto) Lymph % (Auto) [place] % (Auto) Eos % (Auto) Baso % (Auto) Neut # (Auto) Lymph # (Auto) [place] # (Auto) Eos # (Auto) Baso # (Auto) Immature Gran # (Auto) SARS-CoV-2, RNA, NAAT NEGATIVE 09/10/20 06:07 WBC 13.34 H RBC 3.76 L Hgb 10.9 L Hct 33.1 L MCV 88.0 MCH 29.0 MCHC 32.9 RDW Std Deviation 44.7 RDW Coeff of Forrest 14.0 Plt Count 381 MPV 9.7 Immature Gran % (Auto) 0.2 Neut % (Auto) 66.0 Lymph % (Auto) 26.6 [place] % (Auto) 5.8 Eos % (Auto) 1.2 Baso % (Auto) 0.2 Neut # (Auto) 8.80 H Lymph # (Auto) 3.55 H [place] # (Auto) 0.77 H Eos # (Auto) 0.16 Baso # (Auto) 0.03 Immature Gran # (Auto) 0.03 H SARS-CoV-2, RNA, NAAT
== END 2020-09-10 13:25 | disposition home or self-care (01) | DRG 807 ==
LOC: 4S1 21:32 → OPB 21:32 → MERGE 23:08 → 4S1 23:08 → 4S2 09-08 21:38
DX: O40.3XX0 Polyhydramnios, third trimester, not applicable or unspecified; Z91.040 Latex allergy status; O69.81X0 Labor and delivery complicated by cord around neck, without compression, not applicable or unspecified; O99.344 Other mental disorders complicating childbirth; Z3A.36 36 weeks gestation of pregnancy; F32.9 Major depressive disorder, single episode, unspecified; O70.0 First degree perineal laceration during delivery; Z37.0 Single live birth; F17.210 Nicotine dependence, cigarettes, uncomplicated; O99.334 Smoking (tobacco) complicating childbirth; O42.113 Preterm premature rupture of membranes, onset of labor more than 24 hours following rupture, third trimester